=== PATIENT | female | born 2000 | race Hispanic/Latino ===

== ENCOUNTER 2019-04-01 09:23 | Outpatient (CLI) | payer OTHER ==
--- NOTE | 2019-04-01 11:17 | RAD ---
LUMBAR SPINE THREE VIEWS: HISTORY: Low back pain. FINDINGS: The lumbar vertebrae maintain normal height and alignment. Disk spaces are maintained. No evidence of spondylolisthesis or spondylolysis. IMPRESSION: Unremarkable lumbar spine. POS: [facility]
== END 2019-04-01 09:24 | disposition home or self-care (01) ==
LOC: RAD 09:23
PROVIDERS: ATTEND Orthopaedic Surgery
DX: M54.5 Low back pain (principal)
CPT/HCPCS: 72100